=== PATIENT | female | born 2005 | race Caucasian/White ===

== ENCOUNTER 2024-04-14 21:00 | Inpatient (IN) ==
[2024-04-14 21:48] LABS: Albumin Globulin Ratio 1.4 (0.9-2); Albumin Level 4.7 gm/dl (3.4-5.0); BUN Creatinine Ratio 11.4 (10-20); Bilirubin,Total 0.6 mg/dl (0.2-1.0); Globulin 3.3 gm/dl (2.5-4.0); Potassium 3.8 mmol/L (3.5-5.1)
[2024-04-14 21:55] LABS: Basophils # (auto) 0.05 K/uL (0.00-0.20); Basophils % (auto) 0.6 %; Eosinophils % (auto) 1.2 %; Hematocrit (blood only) 40.3 % (37.0-47.0); Hemoglobin 13.5 g/dl (12.0-16.0); Immature Granulocytes # (auto) 0.04 K/uL (0.01-0.20); Immature Granulocytes % (auto) 0.5 %; Lymphocytes # (auto) 2.02 K/uL (1.20-3.40); Lymphocytes % (auto) 23.8 %; Mean Corpuscular Hemoglobin 28.7 pg (25.0-34.0); Mean Corpuscular Hgb Conc 33.5 g/dL (32.0-36.0); Mean Corpuscular Volume 85.7 fL (80.0-100.0); Mean Platelet Volume 13.9 fL (9.4-12.4); Monocytes # (auto) 0.52 K/uL (0.11-0.59); Monocytes % (auto) 6.1 %; Neutrophils # (auto) 5.75 K/uL (1.40-6.50); Neutrophils % (auto) 67.8 %; Platelet Count 241 K/uL (130-400); RDW Coefficient of Variation 15.5 % (11.5-14.5); RDW Standard Deviation 48.9 fL (36.4-46.3); White Blood Count 8.48 K/ul (4.8-10.8)
[2024-04-14 22:04] LABS: Thyroid Stimulating Hormone 1.755 uIu/ml (0.300-4.500)
[2024-04-14 22:06] LABS: Appearance Urine Clear (Clear); Bacteria Urine Automated 3+ (None Seen); Bilirubin Urine Negative (Negative); Blood Urine Negative (Negative); Cast Urine Automated 0-2 /lpf (0-2); Color Urine Dark Yellow; Glucose Urine UA Negative (Negative); Ketones Urine 1+ (Negative); Leukocyte Esterase Urine Negative (Negative); Nitrite Urine Negative (Negative); Protein Urine 1+ (Negative); RBC Urine Automated 0-2 /hpf (0-2); Specific Gravity Urine 1.042 (1.000-1.030); Urobilinogen Urine Negative (Negative); WBC Urine Automated 0-5 /hpf (0-5)
[2024-04-14 22:14] LABS: Acetaminophen < 3 ug/ml (10-30); Salicylate < 3.0 mg/dl (3.0-30)
[2024-04-14 22:43] LABS: Amphetamines+Metham, Urine Neg (Neg); Barbiturates, Urine Neg (Neg); Benzodiazepine, Urine Neg (Neg); Cocaine, Urine Neg (Neg); Fentanyl, Urine Neg (Neg); MDMA (Ecstacy), Urine Neg (Neg); Marijuana, Urine Neg (Neg); Methadone, Urine Neg (Neg); Opiate, Urine Neg (Neg); Phencyclidine, Urine Neg (Neg)
--- NOTE | 2024-04-14 22:50 | Emergency Department Note ---
Impression & Plan Suicidal ideation ED Provider Note HISTORY OF PRESENT ILLNESS: Patient is a 18-year-old biological female who identifies as nonbinary (uses pronouns they/them) who presents with suicidal ideation. Patient disclosed to roommates that they wanted to end their life tonight. Denies any homicidal ideation. Reports that they have been feeling like they want to end their life "for a few days." Reports that they saw their therapist on and were doing well and then today things seem to get worse. Reports that yesterday they "took a bunch of my roommates migraine medications." They are unsure what medication they ingested. Reports that they took these medications because "I wanted to feel something." Denies trying to kill themselves with this medication ingestion. Reports previous suicide attempts via overdose. Denies any auditory or visual hallucinations. Reports a plan to overdose on any medications they could obtain today. Denies any self-harm behaviors. Reports a long history of anxiety and depression and currently follows with an outpatient therapist. Patient was 302 by [facility] [employer] secondary to their suicidal ideation. ROS: as above PHYSICAL EXAM: Constitutional: Patient appears in no acute distress. HENT: Head: Normocephalic and atraumatic. Eyes: EOMI, PERRL Mouth/Throat: Mucous membranes moist. Neck: Trachea midline. Neck supple. Musculoskeletal: No edema, tenderness or deformity noted. Skin: Warm and dry. Psychiatric: Appropriate mood and affect for situation. Neurological: Alert and keenly responsive. CN II-XII grossly intact, moving all extremities equally and fully. MDM: - Vitals signs stable - History obtained via patient. History as above. - Chronic conditions affecting care: Anxiety/depression - Differential diagnoses include, but are not limited to: UTI; electrolyte abnormality; drug intoxication; alcohol intoxication; depression - External medical records reviewed. - Patient presents under 302 petition filed by the police. Patient is alert and oriented and states that they are willing to sign in willingly under a 201 for inpatient psychiatric admission. - Laboratory workup interpreted by myself showed normal WBC; stable electrolytes; normal TSH; negative alcohol/acetaminophen/salicylate level - COVID negative - UA noted to have bacteria, but no positive leukocyte esterase or white blood cells. Also patient is asymptomatic, so will not treat at this time. - UDS negative - Patient medically cleared. The 302 was not upheld and patient instead signed a voluntary 201 for inpatient psychiatric admission. Bed search in process at this time. - Patient accepted to [facility] inpatient psychiatric unit [address] [place] [address] for further evaluation and management. ASSESSMENT AND PLAN: Diagnosis: Suicidal ideation Plan: Admit Past Med/Surg History Problem List (Updated 04/14/24 @ 22:50 by Jacki Jade MD) Suicidal ideation (Acute) Social History Smoking Status: Current every day smoker Tobacco Type: E-cigarettes / Vaping Preferred Language: Sami Feels Safe at Home: Yes Gender Identity: Nonbinary Home Meds Home Medications Medication Instructions Recorded Confirmed Zoloft 10 mg PO DAILY 04/14/24 04/14/24 Results & Data (ED) Vital Signs Vital Signs - 24 hr 04/14/24 21:00 Temperature 37.1 C Temperature Source Oral Pulse Rate 60 Respiratory Rate 18 Respiratory Effort / Characteristics Non-Labored Spontaneous Respiratory Depth Normal Respiratory Pattern Regular Blood Pressure 127/78 Blood Pressure Mean 94 Blood Pressure Position Sitting Pulse Oximetry 98 Oxygen Delivery Method Room Air Sepsis Recent Fever Within 48 Hours No Sepsis New/Unexplained Change in Mental Status N/A Sepsis Action Taken by Nursing No Action Required Laboratory Data 04/14/24 21:10 04/14/24 21:10 Lab Results 04/14/24 04/14/24 Range/Units 21:10 21:45 WBC 8.48 (4.8-10.8) K/ul RBC 4.70 (4.20-5.40) M/uL Hgb 13.5 (12.0-16.0) g/dl Hct 40.3 (37.0-47.0) % MCV 85.7 (80.0-100.0) fL MCH 28.7 (25.0-34.0) pg MCHC 33.5 (32.0-36.0) g/dL RDW Std Deviation 48.9 H (36.4-46.3) fL RDW Coeff of [place] 15.5 H (11.5-14.5) % Plt Count 241 (130-400) K/uL MPV 13.9 H (9.4-12.4) fL Immature Gran % (Auto) 0.5 % Neut % (Auto) 67.8 % Lymph % (Auto) 23.8 % [place] % (Auto) 6.1 % Eos % (Auto) 1.2 % Baso % (Auto) 0.6 % Neut # (Auto) 5.75 (1.40-6.50) K/uL Lymph # (Auto) 2.02 (1.20-3.40) K/uL [place] # (Auto) 0.52 (0.11-0.59) K/uL Eos # (Auto) 0.10 (0.00-0.50) K/uL Baso # (Auto) 0.05 (0.00-0.20) K/uL Immature Gran # (Auto) 0.04 (0.01-0.20) K/uL Sodium 134 L (136-145) mmol/L Potassium 3.8 (3.5-5.1) mmol/L Chloride 104 (98-107) mmol/L Carbon Dioxide 20 L (21-32) mmol/L Anion Gap 10 (3-11) BUN 9 (6-23) mg/dl Creatinine 0.79 (0.6-1.2) mg/dl Est Cr Clr Drug Dosing 132.0 ml/min eGFR 109.75 BUN/Creatinine Ratio 11.4 (10-20) Glucose 98 (70-99(Fasting)) mg/dl Calcium 10.0 (8.6-10.3) mg/dl Total Bilirubin 0.6 (0.2-1.0) mg/dl AST 15 (13-39) U/L ALT 10 (7-52) U/L Alkaline Phosphatase 61 (34-104) U/L Total Protein 8.0 (6.0-8.3) gm/dl Albumin 4.7 (3.4-5.0) gm/dl Globulin 3.3 (2.5-4.0) gm/dl Albumin/Globulin Ratio 1.4 (0.9-2) TSH 1.755 (0.300-4.500) uIu/ml Urine Color Dark Yellow Urine Appearance Clear (Clear) Urine pH 5.0 (4.5-7.5) Ur Specific [place] 1.042 H (1.000-1.030) Urine Protein 1+ H (Negative) Urine Glucose (UA) Negative (Negative) Urine Ketones 1+ H (Negative) Urine Blood Negative (Negative) Urine Nitrite Negative (Negative) Urine Bilirubin Negative (Negative) Urine Urobilinogen Negative (Negative) Ur Leukocyte Esterase Negative (Negative) Urine WBC (Auto) 0-5 (0-5) /hpf Urine RBC (Auto) 0-2 (0-2) /hpf U Hyaline Cast (Auto) 0-2 (0-2) /lpf U Epithel Cells (Auto) 6-10 H (0-2) /hpf Urine Bacteria (Auto) 3+ H (None Seen) POC Ur Test NEG (NEG) Salicylates < 3.0 L (3.0-30) mg/dl Urine Opiates Screen Neg (Neg) Ur Methadone, Qual Neg (Neg) Urine Fentanyl Screen Neg (Neg) Acetaminophen < 3 L (10-30) ug/ml Urine Barbiturates Neg (Neg) Ur Phencyclidine (PCP) Neg (Neg) U Amphetamin/Meth Scrn Neg (Neg) MDMA (Ecstasy) Screen Neg (Neg) U Benzodiazepines Scrn Neg (Neg) Ur Cocaine Metabolite Neg (Neg) U Marijuana (THC) Screen Neg (Neg) Ethyl Alcohol mg/dL < 10.0 (<10.0) mg/dl SARS-CoV-2, RNA, NAAT NEGATIVE (NEGATIVE) Discharge Plan Visit Data Chief Complaint: Mental Health Evaluation ED Provider: Jacki Jade Discharge Problem: Suicidal ideation Forms Stand Alone Forms: [facility], Suicide Prevention Resources Prescriptions Prescriptions: No Action Zoloft bottle 10 mg PO DAILY Referrals Referrals: PCP,NO [Primary Care Provider] -
[2024-04-15] MEDS ORDERED: NICOTINE 14 MG/24 HR PATCH TD STA (00:04)
[2024-04-15] MEDS ORDERED: BISMUTH SUBSALICYLATE 262 MG CHEW PO PRN (01:13)
[2024-04-15] MEDS ORDERED: hydrOXYzine HCl 25 MG TAB PO PRN ×2 (01:13)
[2024-04-15] MEDS ORDERED: SODIUM CHLORIDE 0.65% NA SOLN 45 ML (OCEAN) PRN (01:13)
[2024-04-15] MEDS ORDERED: ACETAMINOPHEN 325 MG TAB PO PRN (01:13)
[2024-04-15] MEDS ORDERED: MAGNESIUM HYDROXIDE SUSP 30 ML UDC PO PRN (01:13)
[2024-04-15] MEDS ORDERED: ALUMINUM/MAGNESIUM SUSP 30 ML UDC PO PRN (01:13)
[2024-04-15] MEDS ORDERED: Patient's ALLERGY Info needs ENTERED STA (01:16)
--- NOTE | 2024-04-15 08:49 | History & Physical ---
Date of Service April 15, 2024 Impression / Recommendations Impression LACY JOSEPH is a 18-year-old nonbinary individual (prefers they/them pronouns) and [employer] student who currently lives in an off-campus apartment with a roommate, has a history of depression, anxiety, OCD, and was admitted on 04/15/24 00:25 on a 201 voluntary commitment for SI with plan and escalating self-harm vs attempt. Diagnostically consistent with unspecified depression with differential including major depressive episode with anxious distress vs acute exacerbation of BPD vs substance-induced depression from dextromethorphan use. Suspect also co-occurring ERICH with panic attacks and possible OCD by history as well as likely BPD. Discussed medication treatment options in detail. Discussed risks, benefits and alternatives. Patient would like to start and consented to fluoxetine for depression and anxiety. Reviewed side effects including but not limited to: GI, QUINTERO, sexual side effects, and counseled on black box warning of potential for emergence of or increased SI and need to let staff know should this occur or should they feel unsafe. Also discussed importance of seeking emergency care following discharge if this side effect occurs in the future. The patient's use history and negative consequences suggests substance use disorder. Motivational interviewing was done as a brief intervention. Intervention was greater than 5 minutes in length and included assessing readiness to quit, advice on how to reduce or abstain and to set a specific goal for this hospitalization. template layout worker will also assist in anticipating barriers to reducing or abstaining from substance use and in problem-solving for solutions to those problems while arranging for referral to appropriate treatment. The patient is in contemplative stage with regards to transtheoretical model of change. Recommended decreasing consumption due to disinhibiting effects and potential for worsening psychiatric symptoms. MNPR-nonbinary Overall I spent a total of 75 minutes for this admission including review of chart records, review of labwork, direct evaluation of the patient, counseling the patient, ordering medication, risk assessment, discussion with the psychiatric liason RN and documentation in the electronic health record. (1) Suicidal ideation: (2) Depression with suicidal ideation: (3) Generalized anxiety disorder with panic attacks: (4) Deliberate self-cutting: (5) Dextromethorphan use disorder, moderate: Plan 04/15/2024: The patient was admitted to the [facility] ([facility]) on q15 min checks (behavioral with suicide precautions) for safety. The patient will participate in group, recreational, and milieu therapies and will be offered additional individual and family sessions as clinically appropriate. -Start fluoxetine 20mg daily -Discussed option for IOP to develop DBT/CBT skills -Symptom questionnaires: * Y-BOCS * Sharyn BPD * PHOEBE Inventory Assets Strengths: supportive relationships, willing to get treatment Needs: safety and stabilization, medication adjustment, additional coping skills, increased outpatient services Suicide Risk Level Suicide Risk Level: High-Moderate (q15 min suicide checks) (depression with SI, recent self-harm vs attempt and substance use but feels safe in the hospital and able to ask for support) Risk Factors Assessment Do You Have Access To A Gun?: No Mental Health Diagnoses: Yes Substance Use Disorders: Yes Previous Attempt: Yes Family History of Suicide: No Previous Psychiatric Hospitalization: No Hopelessness: Yes Protective Factors Assessment Employed: No Stable Relationships: Yes Supportive Family: Yes Psychiatric History Identifying Data LACY JOSEPH is a 18-year-old nonbinary individual (prefers they/them pronouns) and [employer] student who currently lives in an off-campus apartment with a roommate, has a history of depression, anxiety, OCD, and was admitted on 04/15/24 00:25 on a 201 voluntary commitment for SI with plan and escalating self-harm vs attempt. Chief Complaint "I'm just really bad at coping with things". History of Present Illness They present for psychiatric admission for worsening depression and SI in the context of multiple psychosocial stressors including social isolation with few friends locally (has great friends in [place] but struggled to connect with peers at [employer] [facility] [employer]), feeling unable to cope with "any of my emotions and I feel a lot of emotions very intensely". In recent days took a bunch of their roommates migraine medication and started to think about cutting their arm as suicide attempt. They endorse depression for the past three months including tearfulness, anhedonia (not going on walks or playing basketball), decreased motivation, self-guilt, helplessness, hopelessness, energy level has been "alright", decreased appetite, and increased sleep which they attribute to boredom and depression. SI has been occurring "quite often" recently. They've never had suicidal thoughts like this before where they have the thought in addition to a plan. They feel they are "really impulsive" and "I don't think I'm doing these things to try to kill myself, I just want to feel something". They also endorse symptoms of anxiety including "so intense I can't even do anything, even the most simple basic things because I'll do something wrong", generalized worries, shakiness, easily overwhelmed and panic attacks typically monthly. They drink cough syrup "pretty regularly" as they find the dextromethorphan "feels like alcohol" and is easier to get. Has been drinking this daily for the last month, goes through a bottle per day. They don't feel "addicted because I never crave it or enjoy the experience" but "I think I'm just self destructive and stupid". They like that it "quiets anxiety" and "for a little bit I'm just not tense". Doesn't like "everything", "the worst diarrhea" and sometimes "vomiting", "tastes horrendous" and "just so unpleasant and the worst stomach pains for a couple days straight". They are currently prescribed sertraline 50mg daily but hasn't taken this for the last 2-3 weeks because "it wasn't effective anymore", had been taking it since June. Never tried a higher dose. No significant side effects. Psychiatric ROS notable for no current nor history of symptoms of hannah, psychosis, nor eating disorder. Self-harms via cutting daily. They report issues with their dad during childhood that have impacted how they function currently, has sometimes one nightmare per month, no other PTSD symptoms. Past Psychiatric History Current Psychiatric Diagnosis: Unspecified Depressive d/o Outpatient Services: Therapist Christopher, via teletherapy weekly for the last few weeks Psychiatrist in [place], doesn't recall the name, last saw them >1 year ago Previous Psych Admissions: none Do You Have Access To A Gun?: No History of Previous Suicide Attempt: Yes Describe Attempts in the Past: overdosed "a few times", last a few days ago using migraine med Past Medication Trials: sertraline escitalopram-10mg daily and maybe tried higher dose (didn't help) Past Head Trauma/Neuro History History of Concussion/Seizure: Yes couple concussions Allergies Allergy/AdvReac Type Severity Reaction Status Date / Time No Known Allergies Allergy Unverified 04/15/24 01:16 Home Medications Medication Instructions Recorded Confirmed Type Zoloft 10 mg PO DAILY 04/14/24 04/14/24 History Family History Family History of: Alcoholism/Drug Abuse (both sides of the family) Alcohol History Hx of Alcohol Use Over the Past 12 Months: No AUDIT Total Score: 0 socially, a few times per year Smoking Use Have You Smoked or Used Tobacco Products in the Last 30 Days: Yes tobacco type: e-cigarettes Smoking Status: Current every day smoker Substance History Hx of Prescription Med Misuse Over the Past 12 Months: No Hx of Over the Counter Med Misuse Over the Past 12 Months: Yes (cough syrup) Hx of Inhalent Misuse Over the Past 12 Months: No Hx of Organic Substance Use Over the Past 12 Months: No Hx of Illegal Substances/Street Drug Use Over Past 12 Months: No Problems as a Result of Past Substance Use: None Identified Personal History Living Arrangements: Apartment Childhood: Grew up in [place]. Close with mom, step-dad and brother Highest Grade Completed: Some College ([employer] transferring to [employer] in the spring ) Marital Status: Single Number Of Children: n/a Beliefs That Will Affect Care: None Current Legal Problems: No Hx Legal Problems: No Patient History Social History Smoking Status: Current every day smoker Tobacco Type: E-cigarettes / Vaping Preferred Language: Swazi Communication Ability: Effective System Support Developer Required: No Beliefs That Will Affect Care: None Feels Safe at Home: Yes Gender Identity: Nonbinary Assistive Devices: Glasses Review of Systems Review of Systems: All systems reviewed & are unremarkable except as noted in HPI & below Physical Exam Psychiatric: Orientation: alert and oriented x 3 Apperance: appropriately dressed and appropriately groomed Eye Contact: good eye contact Motor Behavior: no abnormal motor movements Speech: normal rate/rhythm/volume of speech Affect: + anxious affect Mood: + depressed mood and + anxious mood Thought Process: goal directed thought process Thought Content: reality based without delusions Suicidal Thoughts: denies suicidal plan and denies suicidal intent; + reports suicidal thoughts (intermittent ) Homicidal Thoughts: denies homicidal thoughts Hallucinations: no auditory hallucinations and no visual hallucinations Cognition: recent memory grossly intact, remote memory grossly intact, attention grossly intact and language grossly intact Estimated Intelligence: consistent with education level Insight: + fair insight Judgment: + limited judgement Vital Signs (Past 24 Hours): Last Vital Signs Temp 36.8 C 04/15/24 06:46 Pulse 62 04/15/24 06:47 Resp 16 04/15/24 06:46 BP 105/70 04/15/24 06:47 Pulse Ox 100 04/15/24 01:17 O2 Del Method Room Air 04/15/24 01:17 Exam Statement: A physical exam was performed in the ED by Dr. Jade for the purposes of medical clearance. I accept that physical as correct and adequate for the purposes of the inpatient physical exam. Results & Data ([facility]) Laboratory Results Laboratory Results - last 24 hr 04/14/24 04/14/24 21:10 21:45 WBC 8.48 RBC 4.70 Hgb 13.5 Hct 40.3 MCV 85.7 MCH 28.7 MCHC 33.5 RDW Std Deviation 48.9 H RDW Coeff of [place] 15.5 H Plt Count 241 MPV 13.9 H Immature Gran % (Auto) 0.5 Neut % (Auto) 67.8 Lymph % (Auto) 23.8 [place] % (Auto) 6.1 Eos % (Auto) 1.2 Baso % (Auto) 0.6 Neut # (Auto) 5.75 Lymph # (Auto) 2.02 [place] # (Auto) 0.52 Eos # (Auto) 0.10 Baso # (Auto) 0.05 Immature Gran # (Auto) 0.04 Sodium 134 L Potassium 3.8 Chloride 104 Carbon Dioxide 20 L Anion Gap 10 BUN 9 Creatinine 0.79 Est Cr Clr Drug Dosing 132.0 eGFR 109.75 BUN/Creatinine Ratio 11.4 Glucose 98 Calcium 10.0 Total Bilirubin 0.6 AST 15 ALT 10 Alkaline Phosphatase 61 Total Protein 8.0 Albumin 4.7 Globulin 3.3 Albumin/Globulin Ratio 1.4 TSH 1.755 Urine Color Dark Yellow Urine Appearance Clear Urine pH 5.0 Ur Specific [place] 1.042 H Urine Protein 1+ H Urine Glucose (UA) Negative Urine Ketones 1+ H Urine Blood Negative Urine Nitrite Negative Urine Bilirubin Negative Urine Urobilinogen Negative Ur Leukocyte Esterase Negative Urine WBC (Auto) 0-5 Urine RBC (Auto) 0-2 U Hyaline Cast (Auto) 0-2 U Epithel Cells (Auto) 6-10 H Urine Bacteria (Auto) 3+ H POC Ur Test NEG Salicylates < 3.0 L Urine Opiates Screen Neg Ur Methadone, Qual Neg Urine Fentanyl Screen Neg Acetaminophen < 3 L Urine Barbiturates Neg Ur Phencyclidine (PCP) Neg U Amphetamin/Meth Scrn Neg MDMA (Ecstasy) Screen Neg U Benzodiazepines Scrn Neg Ur Cocaine Metabolite Neg U Marijuana (THC) Screen Neg Ethyl Alcohol mg/dL < 10.0 SARS-CoV-2, RNA, NAAT NEGATIVE Current Inpatient Medications Current Inpatient Medications: Current Inpatient Medications Acetaminophen (Acetaminophen 325 Mg Tab) 650 mg PO Q4H PRN PRN Reason: Headache or Minor Fever Stop: 05/15/24 01:12 Al Hydrox/Mg Hydrox/Simethicone (Aluminum/Magnesium Susp 30 Ml Udc) 30 ml PO Q4H PRN PRN Reason: GI Upset Stop: 05/15/24 01:12 Bismuth Subsalicylate (Bismuth Subsalicylate 262 Mg Chew) 2 tab PO Q30M PRN PRN Reason: Loose Stool/Diarrhea Stop: 05/15/24 01:12 Hydroxyzine HCl (Hydroxyzine Hcl 25 Mg Tab) 50 mg PO HSZ PRN PRN Reason: Insomnia Stop: 05/15/24 01:12 Hydroxyzine HCl (Hydroxyzine Hcl 25 Mg Tab) 25 mg PO Q4H PRN PRN Reason: Anxiety Stop: 05/15/24 01:12 Influenza Virus Vacc Triv Types A&B (Influenza Vacc [id number](6m+)/Pf (Iiv3) 0.5ml Syr) 0.5 ml IM .ONCE ONE Stop: 04/15/24 09:01 Magnesium Hydroxide (Magnesium Hydroxide Susp 30 Ml Udc) 30 ml PO DAILY PRN PRN Reason: Constipation Stop: 05/15/24 01:12 Miscellaneous (Remove Nicoderm Patch) 1 each N/A DAILY@[id number] [facility] Stop: 05/15/24 08:58 Nicotine (Nicotine 21 Mg/24 Hr Tdsy) 1 patch TD QAM [facility] Stop: 05/15/24 08:59 Sodium Chloride (Sodium Chloride 0.65% Na Soln 45 Ml ([place])) 1 - 2 sprays NA PRN PRN PRN Reason: Nasal Dryness/Congestion Stop: 05/15/24 01:12
[2024-04-15] MEDS ORDERED: ZOLOFT PO SCH (09:00)
[2024-04-15] MEDS: NICOTINE 21 MG/24 HR TDSY TD SCH (09:12)
[2024-04-15] MEDS: INFLUENZA VACC TS2024-25(6m+)/PF (IIV3) 0.5mL Syr IM ONE (10:30)
[2024-04-15] MEDS ORDERED: NICOTINE POLACRILEX 2 MG GUM MT PRN (14:40)
[2024-04-15] MEDS: FLUoxetine HCL 20 MG CAP PO SCH (15:05)
--- NOTE | 2024-04-16 09:01 | Psychiatric Progress Note ---
Date of Service April 16, 2024 Impression / Recommendations Impression LACY JOSEPH is a 18-year-old nonbinary individual (prefers they/them pronouns) and [employer] student who currently lives in an off-campus apartment with a roommate, has a history of depression, anxiety, OCD, and was admitted on 04/15/24 00:25 on a 201 voluntary commitment for SI with plan and escalating self-harm vs attempt. Diagnostically consistent with unspecified depression with differential including major depressive episode with anxious distress vs acute exacerbation of BPD vs substance-induced depression from dextromethorphan use. Suspect also co-occurring ERICH with panic attacks and possible OCD by history as well as likely BPD. A: Ongoing anxiety, less depression today, denies SI. Positive BPD screen and high PHOEBE score-reviewed component of high emotional reactivity of amygdala and suppressed prefrontal cortex response that can be seen with BPD and trauma response leading to self-harm and periods of intensified SI. Low Y-BOCS, low current symptom burden. Tolerating fluoxetine so far. Intake scheduled for DBT IOP. MNPR-nonbinary Overall, I spent a total of 35 minutes on this case including meeting with the patient, reviewing the chart, nursing report, multidisciplinary team meeting, o rders, and documentation. (1) Suicidal ideation: (2) Depression with suicidal ideation: (3) Generalized anxiety disorder with panic attacks: (4) Deliberate self-cutting: (5) Dextromethorphan use disorder, moderate: Plan 04/16/2024: Continue current medications and tx plan 04/15/2024: The patient was admitted to the [facility] ([facility] unit) on q15 min checks (behavioral with suicide precautions) for safety. The patient will participate in group, recreational, and milieu therapies and will be offered additional individual and family sessions as clinically appropriate. -Start fluoxetine 20mg daily -Discussed option for IOP to develop DBT/CBT skills -Symptom questionnaires: * Y-BOCS * Sharyn BPD * PHOEBE Inventory Assets Strengths: supportive relationships, willing to get treatment Needs: safety and stabilization, medication adjustment, additional coping skills, increased outpatient services Suicide Risk Level Suicide Risk Level: Moderate (q15 min suicide checks) (depression with SI, recent self-harm vs attempt and substance use but denies SI today, feels safe in the hospital and able to ask for support) Suicide Risk Level Comments: Risk Factors Assessment Do You Have Access To A Gun?: No Mental Health Diagnoses: Yes Substance Use Disorders: Yes Previous Attempt: Yes Family History of Suicide: No Previous Psychiatric Hospitalization: No Hopelessness: Yes Protective Factors Assessment Employed: No Stable Relationships: Yes Supportive Family: Yes Interval History Identifying Information LACY JOSEPH is a 18-year-old nonbinary individual (prefers they/them pronouns) and [employer] student who currently lives in an off-campus apartment with a roommate, has a history of depression, anxiety, OCD, and was admitted on 04/15/24 00:25 on a 201 voluntary commitment for SI with plan and escalating self-harm vs attempt. Chief Complaint "Alright, woke up anxious". Review of Systems Sleep Information Total Hours of Sleep: 7 Sleep Comments: Meal Information Percent Meal Consumed - Breakfast: 100 Percent Meal Consumed - Lunch: 100 Percent Meal Consumed - Dinner: 100 Subjective Subjective Patient was seen & assessed and interval progress reviewed with treatment team nursing and social work. Attending groups, rated mood as "ok". Today reports feeling less anxious as the day has gone on. Finding groups supportive. No side effects from fluoxetine. Called to set up IOP intake, looking forward to trying DBT. Processed symptom questionnaires-they felt they fit almost all of the BPD symptoms, high PHOEBE score, low Y-BOCS. Physical Exam Psychiatric Orientation: alert and oriented x 3 Apperance: appropriately dressed and appropriately groomed Eye Contact: good eye contact Motor Behavior: no abnormal motor movements Speech: normal rate/rhythm/volume of speech Affect: + anxious affect Mood: + anxious mood Thought Process: goal directed thought process Thought Content: reality based without delusions Suicidal Thoughts: denies suicidal thoughts (lessening), denies suicidal plan and denies suicidal intent Homicidal Thoughts: denies homicidal thoughts Hallucinations: no auditory hallucinations and no visual hallucinations Cognition: recent memory grossly intact, remote memory grossly intact, attention grossly intact and language grossly intact Estimated Intelligence: consistent with education level Insight: + fair insight Judgment: + limited judgement Vital Signs (Past 24 Hours) Last Vital Signs Temp 36.9 C 04/16/24 06:45 Pulse 70 04/16/24 06:46 Resp 16 04/16/24 06:45 BP 101/66 04/16/24 06:46 Pulse Ox 100 04/15/24 01:17 O2 Del Method Room Air 04/15/24 01:17 Results & Data ([facility]) Current Inpatient Medications Current Inpatient Medications: Current Inpatient Medications Acetaminophen (Acetaminophen 325 Mg Tab) 650 mg PO Q4H PRN PRN Reason: Headache or Minor Fever Stop: 05/15/24 01:12 Al Hydrox/Mg Hydrox/Simethicone (Aluminum/Magnesium Susp 30 Ml Udc) 30 ml PO Q4H PRN PRN Reason: GI Upset Stop: 05/15/24 01:12 Bismuth Subsalicylate (Bismuth Subsalicylate 262 Mg Chew) 2 tab PO Q30M PRN PRN Reason: Loose Stool/Diarrhea Stop: 05/15/24 01:12 Fluoxetine HCl (Fluoxetine Hcl 20 Mg Cap) 20 mg PO QAM [facility] Stop: 05/15/24 14:44 Last Admin: 04/15/24 15:05 Dose: 20 mg Hydroxyzine HCl (Hydroxyzine Hcl 25 Mg Tab) 50 mg PO HSZ PRN PRN Reason: Insomnia Stop: 05/15/24 01:12 Hydroxyzine HCl (Hydroxyzine Hcl 25 Mg Tab) 25 mg PO Q4H PRN PRN Reason: Anxiety Stop: 05/15/24 01:12 Magnesium Hydroxide (Magnesium Hydroxide Susp 30 Ml Udc) 30 ml PO DAILY PRN PRN Reason: Constipation Stop: 05/15/24 01:12 Miscellaneous (Remove Nicoderm Patch) 1 each N/A DAILY@0859 [facility] Stop: 05/15/24 08:58 Last Admin: 04/15/24 09:12 Dose: Not Given Nicotine (Nicotine 21 Mg/24 Hr Tds[facility]) [facility] Stop: 05/15/24 08:59 Last Admin: 04/15/24 09:12 Dose: 1 patch Nicotine Polacrilex (Nicotine Polacrilex 2 Mg Gum) 1 piece MT Q2H PRN PRN Reason: Nicotine cravings Stop: 05/15/24 14:39 Sodium Chloride (Sodium Chloride 0.65% Na Soln 45 Ml ([place])) 1 - 2 sprays NA PRN PRN PRN Reason: Nasal Dryness/Congestion Stop: 05/15/24 01:12 Mental Health & Subst Abuse Tx Therapist Name of Therapist: Christopher - Can't remember last name Hay Farmer Name of Hay Farmer: CHENG Post Discharge Appointments Primary Care Physician Name Of Family Doctor/PCP: [facility]
--- NOTE | 2024-04-17 08:47 | Psychiatric Progress Note ---
Date of Service April 17, 2024 Impression / Recommendations Impression LACY JOSEPH is a 18-year-old nonbinary individual (prefers they/them pronouns) and [employer] student who currently lives in an off-campus apartment with a roommate, has a history of depression, anxiety, OCD, and was admitted on 04/15/24 00:25 on a 201 voluntary commitment for SI with plan and escalating self-harm vs attempt. Diagnostically consistent with unspecified depression with differential including major depressive episode with anxious distress vs acute exacerbation of BPD vs substance-induced depression from dextromethorphan use. Suspect also co-occurring ERICH with panic attacks and possible OCD by history as well as likely BPD. A: Mood continues to fluctuate at times, lower this morning but improving by afternoon, denying SI. Ongoing motivational interviewing. Tolerating fluoxetine without any side effects. Discussed mood tracking. MNPR-nonbinary Overall, I spent a total of 35 minutes on this case including meeting with the patient, reviewing the chart, nursing report, multidisciplinary team meeting, orders, and documentation. (1) Suicidal ideation: (2) Depression with suicidal ideation: (3) Generalized anxiety disorder with panic attacks: (4) Deliberate self-cutting: (5) Dextromethorphan use disorder, moderate: Plan 04/17/2024: Continue current medications and tx plan 04/16/2024: Continue current medications and tx plan 04/15/2024: The patient was admitted to the [facility] ([facility] mental health unit) on q15 min checks (behavioral with suicide precautions) for safety. The patient will participate in group, recreational, and milieu therapies and will be offered additional individual and family sessions as clinically appropriate. -Start fluoxetine 20mg daily -Discussed option for IOP to develop DBT/CBT skills -Symptom questionnaires: * Y-BOCS * Sharyn BPD * PHOEBE Inventory Assets Strengths: supportive relationships, willing to get treatment Needs: safety and stabilization, medication adjustment, additional coping skills, increased outpatient services Suicide Risk Level Suicide Risk Level: Moderate (q15 min suicide checks) (depression with SI, recent self-harm vs attempt and substance use but denies SI today, feels safe in the hospital and able to ask for support) Suicide Risk Level Comments: Risk Factors Assessment Do You Have Access To A Gun?: No Mental Health Diagnoses: Yes Substance Use Disorders: Yes Previous Attempt: Yes Family History of Suicide: No Previous Psychiatric Hospitalization: No Hopelessness: Yes Protective Factors Assessment Employed: No Stable Relationships: Yes Supportive Family: Yes Interval History Identifying Information LACY JOSEPH is a 18-year-old nonbinary individual (prefers they/them pronouns) and [employer] student who currently lives in an off-campus apartment with a roommate, has a history of depression, anxiety, OCD, and was admitted on 04/15/24 00:25 on a 201 voluntary commitment for SI with plan and escalating self-harm vs attempt. Chief Complaint "The morning was hard but I'm feeling better now and my mindset is so much better". Review of Systems Sleep Information Total Hours of Sleep: 6.5 Meal Information Percent Meal Consumed - Breakfast: 60 Percent Meal Consumed - Lunch: 60 Percent Meal Consumed - Dinner: 100 Subjective Subjective Patient was seen & assessed and interval progress reviewed with treatment team nursing and social work. Attending groups, supportive of peers. Playing games with peers. Rated mood as "optimistic". This morning woke up feeling more down and numb. Reflects that prior to hospitalization these types of emotions were what lead to using cough syrup. Ongoing motivational interviewing regarding substance use. They feel they will be able to avoid use by thinking about negative consequences and they are looking forward and hopeful about starting IOP. Physical Exam Psychiatric Orientation: alert and oriented x 3 Apperance: appropriately dressed and appropriately groomed Eye Contact: good eye contact Motor Behavior: no abnormal motor movements Speech: normal rate/rhythm/volume of speech Affect: + anxious affect Mood: + depressed mood Thought Process: goal directed thought process Thought Content: reality based without delusions Suicidal Thoughts: denies suicidal thoughts, denies suicidal plan and denies suicidal intent Homicidal Thoughts: denies homicidal thoughts Hallucinations: no auditory hallucinations and no visual hallucinations Cognition: recent memory grossly intact, remote memory grossly intact, attention grossly intact and language grossly intact Estimated Intelligence: consistent with education level Insight: + fair insight Judgment: + limited judgement Vital Signs (Past 24 Hours) Last Vital Signs Temp 36.1 C L 04/17/24 06:00 Pulse 83 04/17/24 06:22 Resp 16 04/17/24 06:00 BP 107/68 04/17/24 06:22 Pulse Ox 100 04/15/24 01:17 O2 Del Method Room Air 04/15/24 01:17 Results & Data ([facility]) Current Inpatient Medications Current Inpatient Medications: Current Inpatient Medications Acetaminophen (Acetaminophen 325 Mg Tab) 650 mg PO Q4H PRN PRN Reason: Headache or Minor Fever Stop: 05/15/24 01:12 Al Hydrox/Mg Hydrox/Simethicone (Aluminum/Magnesium Susp 30 Ml Udc) 30 ml PO Q4H PRN PRN Reason: GI Upset Stop: 05/15/24 01:12 Bismuth Subsalicylate (Bismuth Subsalicylate 262 Mg Chew) 2 tab PO Q30M PRN PRN Reason: Loose Stool/Diarrhea Stop: 05/15/24 01:12 Fluoxetine HCl (Fluoxetine Hcl 20 Mg Cap) 20 mg PO QAM [facility] Stop: 05/15/24 14:44 Last Admin: 04/16/24 09:54 Dose: 20 mg Hydroxyzine HCl (Hydroxyzine Hcl 25 Mg Tab) 50 mg PO HSZ PRN PRN Reason: Insomnia Stop: 05/15/24 01:12 Hydroxyzine HCl (Hydroxyzine Hcl 25 Mg Tab) 25 mg PO Q4H PRN PRN Reason: Anxiety Stop: 05/15/24 01:12 Magnesium Hydroxide (Magnesium Hydroxide Susp 30 Ml Udc) 30 ml PO DAILY PRN PRN Reason: Constipation Stop: 05/15/24 01:12 Miscellaneous (Remove Nicoderm Patch) 1 each N/A DAILY@0859 [facility] Stop: 05/15/24 08:58 Last Admin: 04/16/24 09:54 Dose: 1 each Nicotine (Nicotine 21 Mg/24 Hr Tdsy) 1 patch TD QAM [facility] Stop: 05/15/24 08:59 Last Admin: 04/16/24 09:55 Dose: 1 patch Nicotine Polacrilex (Nicotine Polacrilex 2 Mg Gum) 1 piece MT Q2H PRN PRN Reason: Nicotine cravings Stop: 05/15/24 14:39 Sodium Chloride (Sodium Chloride 0.65% Na Soln 45 Ml ([place])) 1 - 2 sprays NA PRN PRN PRN Reason: Nasal Dryness/Congestion Stop: 05/15/24 01:12 Mental Health & Subst Abuse Tx Psychiatrist Name of Psychiatrist: [facility] - referred for med management Psychiatrist's Psychiatric Appointment Comment: [employer] will manage your meds after intake Therapist Name of Therapist: [facility] - Virtual Therapist's Date of Therapist Appointment: 04/21/24 Time of Therapist Appointment: 9AM Therapy Appointment Comment: zoom link will be sent to your email Engineer Fishing Vessel Name of Engineer Fishing Vessel: NA Post Discharge Appointments Primary Care Physician Name Of Family Doctor/PCP: [facility] Date of Future Appointment with PCP: 04.29.24 Time of Appointment with PCP: 10:00 Provider Appointment Comment: This is an appt. for a physical; provider will call to schedule post hosp.
--- NOTE | 2024-04-18 08:54 | Discharge Summary ---
Date of Service April 18, 2024 History of Present Illness They present for psychiatric admission for worsening depression and SI in the context of multiple psychosocial stressors including social isolation with few friends locally (has great friends in [place] but struggled to connect with peers at [facility]), feeling unable to cope with "any of my emotions and I feel a lot of emotions very intensely". In recent days took a bunch of their roommates migraine medication and started to think about cutting their arm as suicide attempt. They endorse depression for the past three months including tearfulness, anhedonia (not going on walks or playing basketball), decreased motivation, self-guilt, helplessness, hopelessness, energy level has been "alright", decreased appetite, and increased sleep which they attribute to boredom and depression. SI has been occurring "quite often" recently. They've never had suicidal thoughts like this before where they have the thought in addition to a plan. They feel they are "really impulsive" and "I don't think I'm doing these things to try to kill myself, I just want to feel something". They also endorse symptoms of anxiety including "so intense I can't even do anything, even the most simple basic things because I'll do something wrong", generalized worries, shakiness, easily overwhelmed and panic attacks typically monthly. They drink cough syrup "pretty regularly" as they find the dextromethorphan "feels like alcohol" and is easier to get. Has been drinking this daily for the last month, goes through a bottle per day. They don't feel "addicted because I never crave it or enjoy the experience" but "I think I'm just self destructive and stupid". They like that it "quiets anxiety" and "for a little bit I'm just not tense". Doesn't like "everything", "the worst diarrhea" and sometimes "vomiting", "tastes horrendous" and "just so unpleasant and the worst stomach pains for a couple days straight". They are currently prescribed sertraline 50mg daily but hasn't taken this for the last 2-3 weeks because "it wasn't effective anymore", had been taking it since June. Never tried a higher dose. No significant side effects. Psychiatric ROS notable for no current nor history of symptoms of hannah, psychosis, nor eating disorder. Self-harms via cutting daily. They report issues with their dad during childhood that have impacted how they function currently, has sometimes one nightmare per month, no other PTSD symptoms. Physical Exam Vital Signs (Past 24 Hours) Last Vital Signs Temp 36.3 C L 04/18/24 06:18 Pulse 77 04/18/24 06:19 Resp 16 04/18/24 06:18 BP 102/71 04/18/24 06:19 Pulse Ox 97 04/18/24 06:18 O2 Del Method Room Air 04/18/24 06:18 Principal Diagnosis Unspecified Depressive Disorder Psychiatric Data See daily stay summary. In short, patient was engaged with the social/therapeutic milieu of the unit, safety was maintained and the patient was cooperative with care. Medication changes included initiation of fluoxetine 20mg daily for depression and anxiety and Vistaril 25mg daily prn for anxiety/insomnia and they tolerated this well. A support session was held and safety plan was completed prior to discharge. They participated in safety planning and in discussions about ways to seek support and recognizing warning signs and utilizing coping skills. Reviewed ways to have their safety plan and contacts easily available should thoughts of SI re-emerge in the future. Reviewed importance of seeking emergency care should SI intensify, worsen or should they feel unsafe in the future which they agree to do. On the day of discharge they stated their mood was "good, much better" and remained future-oriented including returning to school, going home for the holidays, starting at [employer] in the spring and engaging in aftercare appointments for [facility], primary care and [employer] student care and advocacy. Day of Discharge Assessment Today the patient voices readiness for discharge. They note improvement in mood and anxiety. They deny thoughts of harm to self or others. Thoughts are organized and they are clinically improved from admission. There is no evidence of psychosis. They improved in the hospital with support and medication adjustments. They agree to take medications as prescribed and keep follow-up appointments. At the time of the discharge they are deemed to be stable and appropriate for outpatient level of care. They are not deemed to be at imminent risk of harm to self or others. They are aware of emergency and crisis services. Knows to call 911 or go to nearest emergency care center if in a crisis which c annot be handled as an outpatient. Suicide risk assessment: Acute risk is low given improvement in mood and denial of SI, future-oriented, lack of access to lethal means, plan to avoid substance use, hopefulness. Chronic risk is moderate given some non-modifiable risk factors: psychiatric co- morbid diagnoses, periods of impulsivity, prior attempt, hx self-harm, emotional reactivity, cluster B personality disorder, childhood trauma but also with protective factors including employed/student, good social support, sense of responsibility to family and social supports, outpatient care in place, positive coping skills, positive problem solving, willingness to engage with treatment and self-observation. Counseled on ways to reduce acute and chronic risk including engaging with outpatient providers, using safety plan if needed, utilizing supports, taking medication, and using coping skills including learning DBT skills via IOP. Modifiable risk factors of SI and depression were addressed during hospitalization through development of new coping skills, motivational interviewing, support meeting, safety planning, and medication adjustments. Discharge physical exam: See admission H&P, MSE per above and day of discharge summary. Overall, I spent a total of 35 minutes on this case including meeting with the patient, reviewing the chart, nursing report, multidisciplinary team meeting, discharge orders, anticipatory planning, safety planning, risk assessment and documentation. Transition of Care Transition Of Care Record: was reviewed with the patient Advance Directives Advance Directives Information Provided: Yes Advance Directives: No Mental Health Advance Directive: No Advance Directives on File: No Living Will: No Power of Sandfill Operator: No Advance Directives Reason:: Declines as Mental Health Visit. Suicide Risk Level Suicide Risk Level Comments: Acute risk is low, see further assessment above Risk Factors Assessment Do You Have Access To A Gun?: No Mental Health Diagnoses: Yes Substance Use Disorders: Yes Previous Attempt: Yes Family History of Suicide: No Previous Psychiatric Hospitalization: No Hopelessness: No Protective Factors Assessment Employed: No (but student) Stable Relationships: Yes Supportive Family: Yes Discharge Data Lab Results 04/14/24 04/14/24 21:10 21:45 WBC 8.48 RBC 4.70 Hgb 13.5 Hct 40.3 MCV 85.7 MCH 28.7 MCHC 33.5 RDW Std Deviation 48.9 H RDW Coeff of [place] 15.5 H Plt Count 241 MPV 13.9 H Immature Gran % (Auto) 0.5 Neut % (Auto) 67.8 Lymph % (Auto) 23.8 [place] % (Auto) 6.1 Eos % (Auto) 1.2 Baso % (Auto) 0.6 Neut # (Auto) 5.75 Lymph # (Auto) 2.02 [place] # (Auto) 0.52 Eos # (Auto) 0.10 Baso # (Auto) 0.05 Immature Gran # (Auto) 0.04 Sodium 134 L Potassium 3.8 Chloride 104 Carbon Dioxide 20 L Anion Gap 10 BUN 9 Creatinine 0.79 Est Cr Clr Drug Dosing 132.0 eGFR 109.75 BUN/Creatinine Ratio 11.4 Glucose 98 Calcium 10.0 Total Bilirubin 0.6 AST 15 ALT 10 Alkaline Phosphatase 61 Total Protein 8.0 Albumin 4.7 Globulin 3.3 Albumin/Globulin Ratio 1.4 TSH 1.755 Urine Color Dark Yellow Urine Appearance Clear Urine pH 5.0 Ur Specific [place] 1.042 H Urine Protein 1+ H Urine Glucose (UA) Negative Urine Ketones 1+ H Urine Blood Negative Urine Nitrite Negative Urine Bilirubin Negative Urine Urobilinogen Negative Ur Leukocyte Esterase Negative Urine WBC (Auto) 0-5 Urine RBC (Auto) 0-2 U Hyaline Cast (Auto) 0-2 U Epithel Cells (Auto) 6-10 H Urine Bacteria (Auto) 3+ H POC Ur Test NEG Salicylates < 3.0 L Urine Opiates Screen Neg Ur Methadone, Qual Neg Urine Fentanyl Screen Neg Acetaminophen < 3 L Urine Barbiturates Neg Ur Phencyclidine (PCP) Neg U Amphetamin/Meth Scrn Neg MDMA (Ecstasy) Screen Neg U Benzodiazepines Scrn Neg Ur Cocaine Metabolite Neg U Marijuana (THC) Screen Neg Ethyl Alcohol mg/dL < 10.0 SARS-CoV-2, RNA, NAAT NEGATIVE Hospital Course (1) Suicidal ideation: (2) Depression with suicidal ideation: (3) Generalized anxiety disorder with panic attacks: (4) Deliberate self-cutting: (5) Dextromethorphan use disorder, moderate: (6) Borderline personality disorder: Plan 04/18/2024: Feels safe and ready for discharge. Desires discharge today. 04/17/2024: Continue current medications and tx plan 04/16/2024: Continue current medications and tx plan 04/15/2024: The patient was admitted to the [facility] on q15 min checks (behavioral with suicide precautions) for safety. The patient will participate in group, recreational, and milieu therapies and will be offered additional individual and family sessions as clinically appropriate. -Start fluoxetine 20mg daily -Discussed option for IOP to develop DBT/CBT skills -Symptom questionnaires: * Y-BOCS * Sharyn BPD * [facility] Tx Psychiatrist Name of Psychiatrist: Linwood Smith - referred for med management Psychiatrist's Psychiatric Appointment Comment: Linwood [employer] will manage your meds after i ntake Therapist Name of Therapist: [facility] - Virtual Therapist's Date of Therapist Appointment: 04/21/24 Time of Therapist Appointment: 9AM Therapy Appointment Comment: zoom link will be sent to your email Signal Circuit Designer Name of Signal Circuit Designer: CHENG Post Discharge Appointments Primary Care Physician Name Of Family Doctor/PCP: [facility] Date of Future Appointment with PCP: 04.29.24 Time of Appointment with PCP: 10:00 Provider Appointment Comment: This is an appt. for a physical; provider will call to schedule post hosp. Other #1: [facility] Phone Number of Aftercare Appointment: [phone] Date of Aftercare Appointment: 04/21/24 Time of Aftercare Appointment: 9:00 am #2: Name of Aftercare Appointment: [facility] Advocacy Phone Number of Aftercare Appointment: [phone] Date of Aftercare Appointment: 04/24/24 Time of Aftercare Appointment: 10AM Aftercare Appointment Comment: [employer] will email link Discharge Plan Discharge Items Patient Disposition: Home - Self-Care Reason For Visit: SI, DEPRESSION Discharge Diagnosis: Unspecified Depressive Disorder Activity: Resume your previous activity Non-emergency contact: Primary Care Provider, Psychiatrist and Therapist Call non-emergency contact if: you have any medication questions and your symptoms worsen Follow-up/Referrals: PCP,NO [Primary Care Provider] - Diet: Regular Addtl Attending Provider Instructions: Optional mobile apps: -Suicide safety plan -Virtual Hope Box SPECIAL CARE INSTRUCTIONS: 1. Follow through with your scheduled aftercare appointments. If unable to keep an appointment, please call to reschedule. 2. Take your medication only as prescribed. Medication should not be changed or stopped without the approval of your doctor. In the event of worsening symptoms or concerns about side effects, contact your doctor immediately. 3. Utilize new healthy coping skills, anger management skills, and stress management skills learned during your hospitalization. Journal feelings and process them with a support person. Identify stressors or situations that may result in relapse, deterioration or inappropriate behaviors and develop a plan to deal with those issues. 4. If your coping skills are ineffective and you are in crisis, contact your outpatient providers for direction. If unable to reach your providers, please call the [facility] CRISIS LINE AT , go to the [facility] walk-in center at [address], [address], [place], or go to the closest Emergency Room. 5. Avoid alcohol and un-prescribed drugs. 6. You have been provided with the Mental Health Advance Directives Pamphlet for your review. 7. Your condition is stable for discharge to outpatient level of care, but recovery is an ongoing process. Ifthoughts to harm yourself or others return, follow the safety plan developed during your stay. Planning for a safe return home includes securing weapons. Our treatment team recommends weaponsbe removed from the home until your outpatient provider reassesses your progress. In rare cases where the items themselvescannot be removed, guns and ammunitionshould be secured separatelyand keys stored by a reliable personoutside of the home. If you were admitted on an involuntary commitment, the police or other legal authorities may be involved in this process. AFTERCARE APPOINTMENTS: * Please call your insurance company prior to your scheduled appointment to confirm your aftercare providers are covered. Take your insurance information to your appointments. WHO TO CALL AND WHEN: Medical Emergencies: For questions or emergencies related to your hospital stay, please contact the Inpatient Behavioral Health Unit at [phone]. A properties supervisor is on-call 25/12 for the Behavioral Health Unit for emergencies At any time you feel your situation is an emergency, you may also call 911 immediately. National Crisis hotline: 454 Pending Studies at Discharge: No Stand-Alone Forms: My Redeemr, Smoking Cessation Medications and DC Order Prescriptions: New fluoxetine 20 mg Capsule 20 mg PO QAM 30 Days Qty: 30 0RF hydroxyzine HCl 25 mg Tablet 25 mg PO DAILY PRN (Reason: anxiety/insomnia) 30 Days Qty: 30 0RF Discontinued Zoloft bottle 10 mg PO DAILY Discharge Orders: Discharge Order (Routine); Ordered 04/18/24 Ordered By: Kourtney Harris Admission Data Admit Date/Time: 04/15/24 00:25 Attending Provider: Kourtney Harris Admit Provider: Kourtney Harris Primary Care Provider: PCP,ODILIA Coding Level of Care Code 46248 D/C day mgmt > 30 min Diagnoses Suicidal ideation R45.851 Depression with suicidal ideation F32.A; R45.851 Generalized anxiety disorder with panic attacks F41.1; F41.0 Deliberate self-cutting Z72.89 Dextromethorphan use disorder, moderate F19.20 Borderline personality disorder F60.3
== END 2024-04-18 12:00 | disposition home or self-care (01) | DRG 881 ==
LOC: ED 21:00 → 3S 04-15 00:25